=== PATIENT | female | born 1950 | race Caucasian/White ===

== ENCOUNTER → 2018-04-07 | Outpatient (CLI) | payer MEDICARE, OTHER ==
--- NOTE | 2018-04-07 13:49 | RAD ---
Bone mineral density exam History: Postmenopausal Comparison: None Findings: Bone mineral density examination utilizing DEXA was performed. Right femur bone mineral density of 1.028 g/cm2 corresponds with a T score 0.6, Z score 1.2. The bone mineral density of the lumbar spine was 1.260 g/cm2 which corresponds with a T-score of 0.7, Z score 1.2. By World [employer] on Osteoporosis criteria, a T score of 0 to-1 SD is considered to be within normal limits. A T score of -1 to -2.5 SD is considered osteopenia. A T score less than -2.5 SD is considered osteoporosis Impression: 1. There is normal bone density of the lumbar spine and the right femur. Electronically signed by: Hever Hebert MD (04/07/2018 1:45 PM) [id number]
== END | disposition home or self-care (01) ==
LOC: DXRAD 13:02
PROVIDERS: ATTEND Physician Assistant Medical
DX: Z78.0 Asymptomatic menopausal state (principal)
CPT/HCPCS: 77080

== ENCOUNTER → 2019-06-07 | Outpatient (CLI) | payer MEDICARE, OTHER ==
--- NOTE | 2019-06-08 14:03 | RAD ---
Examination: CT ABDOMEN PELVIS WO CONTRAST History: Generalized abdominal pain Comparison/Correlation: None Findings: Axial images of the abdomen and pelvis were obtained without contrast. Sagittal and coronal reformatted images were provided. Linear atelectasis at the lung bases is noted. Diffuse fatty infiltration of the liver is present. Splenectomy is noted. Small residual splenule is suggested. Pancreas and adrenal glands are unremarkable. Gallbladder fossa is normal. No radiopaque collecting system calculus. Urinary bladder is unremarkable. Diverticulosis of the colon is present. No enlarged abdominal or pelvic lymph nodes. No ascites or pelvic free fluid. Diverticulosis is present. No acute inflammation. Appendix is normal. Right L5 pars interarticularis fracture is present. Anterolisthesis of L5 in relation to S1 is of grade 1 extent. Impression: Fatty infiltration of the liver. Diverticulosis. No acute process. Right L5 pars interarticularis fracture with anterolisthesis of L5 in relation to S1. PQRS Compliance Statement: One or more of the following individualized dose reduction techniques were utilized for this examination: 1. Automated exposure control 2. Adjustment of the mA and/or kV according to patient size 3. Use of iterative reconstruction technique Electronically signed by: Mata Ellis MD (06/08/2019 2:00 PM) [id number]
== END | disposition home or self-care (01) ==
LOC: CT 13:02
PROVIDERS: ATTEND Physician Assistant Medical
DX: K57.30 Diverticulosis of large intestine without perforation or abscess without bleeding (principal); K76.0 Fatty (change of) liver, not elsewhere classified; J98.11 Atelectasis; S32.058A Other fracture of fifth lumbar vertebra, initial encounter for closed fracture; M43.17 Spondylolisthesis, lumbosacral region; Z90.81 Acquired absence of spleen; X58.XXXA Exposure to other specified factors, initial encounter; Y93.89 Activity, other specified; Y92.89 Other specified places as the place of occurrence of the external cause; Y99.8 Other external cause status
CPT/HCPCS: 74176

== ENCOUNTER → 2020-11-27 | Outpatient (CLI) | payer MEDICARE, OTHER ==
--- NOTE | 2020-11-27 11:31 | RAD ---
EXAM: Chest, 2 views. HISTORY: Preoperative evaluation. COMPARISON: None. FINDINGS: 2 views of chest are obtained. There is no infiltrate, pleural effusion or pneumothorax. Th e heart is normal in size. IMPRESSION: No acute pulmonary finding. Electronically signed by: Liz Merida MD (11/27/2020 11:28 AM) [id number]
== END ==
LOC: RAD 11:14
PROVIDERS: ATTEND Physician Assistant Medical
DX: Z01.818 Encounter for other preprocedural examination (principal); M25.40 Effusion, unspecified joint; M25.50 Pain in unspecified joint
CPT/HCPCS: 71046